=== PATIENT | female | born 2000 | race Caucasian/White ===

== ENCOUNTER 2024-01-20 17:27 | Observation (INO) | payer OTHER, SELFPAY ==
[2024-01-20 17:57] VITALS: BP 141/80; PULSE 101
[2024-01-20 18:04] LABS: Bilirubin Urine NEGATIVE (NEGATIVE); Blood Urine NEGATIVE (NEGATIVE); Clarity Urine CLEAR (CLEAR); Color Urine YELLOW (YELLOW); Glucose Urine UA NEGATIVE (NEGATIVE); Ketones Urine NEGATIVE (NEGATIVE); Leukocyte Esterase Urine TRACE (NEGATIVE); Nitrite Urine NEGATIVE (NEGATIVE); Protein Urine NEGATIVE (NEG/TRACE); Specific Gravity Urine >=1.030 (1.005-1.025); Urobilinogen Urine 0.2 EU/dL (0.2-1.0)
[2024-01-20 18:10] LABS: Urine Microscopic Indicated YES
[2024-01-20 18:12] LABS: Amnisure NEGATIVE (NEGATIVE); Internal Control Within Normal Limits
[2024-01-20 18:23] LABS: Mucus Urine SMALL (NONE SEEN); RBC Urine 0-2 #/HPF (0-2)
[2024-01-20 18:24] LABS: Bacteria Urine TRACE #/HPF (NONE SEEN); Cast Seen? NONE SEEN #/LPF (NONE SEEN); Crystals Seen? None Seen #/HPF (None Seen); Squamous Epithelial Cell Urine MODERATE #/LPF (NONE/RARE)
[2024-01-20 18:25] LABS: Urine Culture Indicated YES
== END 2024-01-20 18:37 | disposition home or self-care (01) ==
PROVIDERS: Admitting Provider Obstetrics & Gynecology; PCP Family Medicine; Visit Provider Obstetrics & Gynecology
DX: O47.02 False labor before 37 completed weeks of gestation, second trimester (principal); Z3A.25 25 weeks gestation of pregnancy
CPT/HCPCS: 59025; 81001; 84112; 87086; G0378; G0379